=== PATIENT | male | born 1965 | race Caucasian/White ===

== ENCOUNTER 2018-04-12 07:55 | Emergency (ER) | payer MEDICAID ==
[~2018-04-12] VITALS: Ht 154.9 cm; Wt 54.4 kg
[2018-04-12 07:58] VITALS: BP_SYST 145
[2018-04-12] MEDS ORDERED: ACETAMINOPHEN 500 MG TABLET PO ONE (08:30)
[2018-04-12] MEDS ORDERED: ACETAMINOPHEN 500 MG TABLET ONE (08:47)
[2018-04-12 08:54] VITALS: BP_SYST 145
== END 2018-04-12 08:54 | disposition home or self-care (01) ==
LOC: SED 07:55
DX: R10.9 Unspecified abdominal pain (principal)
CPT/HCPCS: 81002; 99283